=== PATIENT | female | born 1970 | race American Indian/Alaskan Native ===

== ENCOUNTER 2017-04-04 15:10 | Emergency (ER) | payer MEDICAID, OTHER ==
--- NOTE | 2017-04-04 15:35 | EDM.PDOC ---
ED HPI GENERAL MEDICAL PROBLEM - General Chief Complaint: Chest Pain Stated Complaint: CHEST PAINS Time Seen by Provider: 04/04/17 15:15 Source of Information: Reports: Patient History Limitations: Reports: No Limitations - History of Present Illness INITIAL COMMENTS - FREE TEXT/NARRATIVE: 46-year-old female who is been having chest pain for the past 3 days, worse with a deep breath and worse at night when laying down. She has had a migraine for 3 days and a mild productive cough but no fever or chills, no nausea or vomiting. No recent trauma. She takes no medicine, she does not smoke and does not consume alcohol. She has had "pneumonia" in the past and she says it feels like pneumonia. She presented to the clinic and was sent directly over the emergency room. Onset: Gradual (Over the past 3 days she's been having symptoms) Duration: Waxing/Waning Location: Reports: Chest Quality: Reports: Burning, Dull Severity: Mild Worsens with: Reports: Other (Deep breaths cause increased pain) Associated Symptoms: Reports: Cough (Coughing up "junk"), Headaches. Denies: Diaphoresis, Fever/Chills, Loss of Appetite, Nausea/Vomiting, Shortness of Breath Chest Pain Score (Numeric/FACES): 5 - Related Data Allergies Allergy/AdvReac Type Severity Reaction Status Date / Time aspirin Allergy Diarrhea Verified 04/04/17 15:23 clindamycin Allergy Diarrhea Verified 04/04/17 15:23 Penicillins Allergy Anaphylactic Verified 04/04/17 15:23 Shock procaine HCl [From Novocain] Allergy Swelling Verified 04/04/17 15:23 Home Meds: Home Meds Naproxen [Naprosyn] 500 mg PO BID PRN 11/06/14 [History] Social & Family History - Tobacco Use Smoking Status *Q: Current Every Day Smoker Years of Tobacco use: 20 Second Hand Smoke Exposure: No - Alcohol Use Days Per Week of Alcohol Use: 0 - Recreational Drug Use Recreational Drug Use: Yes Drug Use in Last 12 Months: Yes Recreational Drug Type: Reports: Marijuana/Hashish Recreational Drug Use Frequency: Daily ED ROS GENERAL - Review of Systems Review Of Systems: See Below Constitutional: Denies: Fever, Chills HEENT: Reports: No Symptoms Respiratory: Reports: Cough, Sputum. Denies: Shortness of Breath Cardiovascular: Reports: Chest Pain GI/Abdominal: Reports: Abdominal Pain (Epigastric burning, worse with lying down or deep breath) : Reports: No Symptoms Musculoskeletal: Reports: No Symptoms Skin: Reports: No Symptoms Neurological: Reports: Headache. Denies: Confusion, Dizziness Psychiatric: Reports: No Symptoms ED EXAM, GENERAL - Physical Exam Exam: See Below Exam Limited By: No Limitations General Appearance: Alert, No Apparent Distress Eye Exam: Bilateral Eye: EOMI, Normal Inspection (No jaundice) Head: Atraumatic, Normocephalic Neck: Normal Inspection Respiratory/Chest: No Respiratory Distress, Rales (A few scattered rales are heard in the right base otherwise normal) Cardiovascular: Regular Rate, Rhythm GI/Abdominal: Soft, Non-Tender Extremities: Normal Inspection. No: Pedal Edema Neurological: Alert, Oriented Psychiatric: Normal Affect, Normal Mood Skin Exam: Warm, Dry EKG INTERPRETATION Rhythm: NSR Course - Vital Signs Last Recorded V/S: Last Vital Signs Temp 99.0 F 04/04/17 16:49 Pulse 87 04/04/17 16:49 Resp 15 04/04/17 15:26 BP 116/75 04/04/17 16:49 Pulse Ox 98 04/04/17 16:49 - Orders/Labs/Meds Orders: Active Orders 24 hr Category Date Time Status EKG Documentation Completion [RC] ASDIRECTED Care 04/04/17 15:35 Active EKG 12 Lead [EK] Routine Ther 04/04/17 15:35 Ordered Labs: Laboratory Tests 04/04/17 04/04/17 04/04/17 Range/Units 15:40 15:40 15:40 WBC 8.7 (4.5-11.0) K/uL RBC 4.09 (3.30-5.50) M/uL Hgb 12.1 (12.0-15.0) g/dL Hct 36.2 (36.0-48.0) % MCV 89 (80-98) fL MCH 30 (27-31) pg MCHC 33 (32-36) % Plt Count 310 (150-400) K/uL Neut % (Auto) 71 H (36-66) % Lymph % (Auto) 18 L (24-44) % [place] % (Auto) 7 H (2-6) % Eos % (Auto) 3 (2-4) % Baso % (Auto) 1 (0-1) % D-Dimer, Quantitative < 100 (0.0-400.0) ng/mL Sodium 141 (140-148) mmol/L Potassium 3.6 (3.6-5.2) mmol/L Chloride 105 (100-108) mmol/L Carbon Dioxide 25 (21-32) mmol/L Anion Gap 11.3 (5.0-14.0) mmol/L BUN 11 (7-18) mg/dL Creatinine 0.7 (0.6-1.0) mg/dL Est Cr Clr Drug Dosing 98.69 mL/min Estimated GFR (MDRD) > 60 (>60) Glucose 119 H (74-106) mg/dL Calcium 7.8 L (8.5-10.1) mg/dL Total Bilirubin 0.2 (0.2-1.0) mg/dL AST 13 L (15-37) U/L ALT 17 (12-78) U/L Alkaline Phosphatase 56 (46-116) U/L Troponin I < 0.017 (0.000-0.056) ng/mL Total Protein 6.8 (6.4-8.2) g/dL Albumin 3.4 (3.4-5.0) g/dL Globulin 3.4 (2.3-3.5) g/dL Albumin/Globulin Ratio 1.0 L (1.2-2.2) Meds: Medications Discontinued Medications Generic Name Dose Route Start Last Admin Trade Name Freq PRN Reason Stop Dose Admin Ketorolac Tromethamine 60 mg 04/04/17 16:30 04/04/17 16:58 Toradol IM 04/04/17 16:31 60 mg ONETIME ONE Administration - Re-Assessments/Exams Free Text/Narrative Re-Assessment/Exam: 04/04/17 16:41 EKG was normal. CBC, CMP, troponin and d-dimer were obtained. All labs were normal as well. Two-view chest x-ray was normal. Her pain was very reproducible with a deep breath or with trying to sit up against resistance. A 60 mg Toradol dose IM was given which gave her some relief. She can continue on 10 mg every 6- 8 hours for the weekend, and recheck next week if not improving satisfactorily. Departure - Departure Time of Disposition: 17:04 Disposition: Home, Self-Care 01 Condition: Good Clinical Impression: Left-sided chest wall pain - Discharge Information Instructions: Chest Wall Pain, [id number] Referrals: PCP,None [Primary Care Provider] - Forms: ED Department Discharge Care Plan Goals: Take one pain pill every 6-8 hours for the next 3-5 days. Increase activity as tolerated and recheck next week if not improving satisfactorily. Return sooner if you feel you are worsening or develop other concerns. - My Orders Last 24 Hours: My Active Orders 04/04/17 15:35 EKG Documentation Completion [RC] ASDIRECTED EKG 12 Lead [EK] Routine - Assessment/Plan Last 24 Hours: My Active Orders 04/04/17 15:35 EKG Documentation Completion [RC] ASDIRECTED EKG 12 Lead [EK] Routine
--- NOTE | 2017-04-04 15:57 | CR ---
Chest 2V INDICATION: dyspnea COMPARISON: None FINDINGS: 3 views. Heart size normal. Lungs are clear. No infiltrate or pleural effusion. No signs of pulmonary edema. Old left rib fractures. IMPRESSION: Nothing acute. Hyperinflation.
[2017-04-04] MEDS ORDERED: Ketorolac 60 MG/2 ML SDV IM ONE (16:30)
[2017-04-04 16:50] VITALS: BP 116/75
== END 2017-04-04 17:05 | disposition home or self-care (01) ==
LOC: JP.ED 15:10
DX: R07.89 Other chest pain (principal); F17.200 Nicotine dependence, unspecified, uncomplicated; Z88.6 Allergy status to analgesic agent; Z88.0 Allergy status to penicillin; Z88.1 Allergy status to other antibiotic agents
CPT/HCPCS: 36415; 71020; 80053; 84484; 85025; 85379; 93005; 96372; 99285; J1885; 93010; 99284

== ENCOUNTER 2019-12-28 18:54 | Emergency (ER) | payer MEDICAID | END 2019-12-28 20:10 | disposition left against medical advice (07) | LOC: JP.ED 18:54 | DX: Z53.21 Procedure and treatment not carried out due to patient leaving prior to being seen by health care provider (principal) ==

== ENCOUNTER 2020-01-10 15:00 | Emergency (ER) | payer MEDICAID ==
--- NOTE | 2020-01-10 15:15 | EDM.PDOC ---
ED HPI GENERAL MEDICAL PROBLEM - General Chief Complaint: General Stated Complaint: GENERAL Time Seen by Provider: 01/10/20 15:12 Source of Information: Reports: Family History Limitations: Reports: No Limitations - History of Present Illness INITIAL COMMENTS - FREE TEXT/NARRATIVE: 49-year-old female with a history of chronic back problems and memory loss presents to the emergency department for evaluation of unresponsiveness. The episode occurred today when she was at home in her apartment with her boyfriend. He reported that she quit talking to him for 20 minutes and seemed confused however she did not verbalize any complaints. He brought her to the ED and her lack of responsiveness improved. The patient reports that she has dysuria. She denies back pain, nausea or vomiting. She denies chills or fever. She denies alcohol use. She denies street drug use. She is not on a regular medications. She reports a history of seizures however her boyfriend did not see any seizure- like activity. The patient is felt well and does not have a fever. Pelvic Pain Score (Numeric/FACES): 5 - Related Data Allergies Allergy/AdvReac Type Severity Reaction Status Date / Time aspirin Allergy Diarrhea Verified 01/10/20 15:35 clindamycin Allergy Diarrhea Verified 01/10/20 15:35 Penicillins Allergy Anaphylactic Verified 01/10/20 15:35 Shock procaine HCl [From Novocain] Allergy Swelling Verified 01/10/20 15:35 Home Meds: Home Meds NK [No Known Home Meds] 01/10/20 [History] Past Medical History - Past Health History Medical/Surgical History: Denies Medical/Surgical History ED ROS GENERAL - Review of Systems Review Of Systems: See Below Constitutional: Denies: Fever, Chills HEENT: Reports: No Symptoms Respiratory: Denies: Shortness of Breath, Cough Cardiovascular: Denies: Chest Pain GI/Abdominal: Reports: No Symptoms. Denies: Nausea, Vomiting : Reports: Dysuria. Denies: Flank Pain, Frequency Musculoskeletal: Reports: Neck Pain, Back Pain Skin: Reports: No Symptoms Neurological: Reports: Other (Unresponsiveness) Psychiatric: Reports: Anxiety, Confusion Hematologic/Lymphatic: Reports: No Symptoms ED EXAM, GENERAL - Physical Exam Exam: See Below Exam Limited By: No Limitations General Appearance: Alert, WD/WN, No Apparent Distress Eye Exam: Bilateral Eye: Other (PERRLA) Ears: Normal External Exam, Normal Canal Nose: Normal Inspection, Normal Mucosa Throat/Mouth: Normal Inspection, Normal Teeth, Normal Gums, Normal Oropharynx Head: Atraumatic. No: Facial Tenderness Neck: Normal Inspection, Supple Respiratory/Chest: No Respiratory Distress, Lungs Clear Cardiovascular: Normal Peripheral Pulses, Regular Rate, Rhythm GI/Abdominal: Normal Bowel Sounds, Soft, Non-Tender Extremities: Normal Inspection, Normal Range of Motion Neurological: Alert, Oriented, Normal Cognition, Normal Reflexes, No Motor/Sensory Deficits. No: Inattentive, Confused Psychiatric: Normal Affect, Normal Mood Skin Exam: Warm, Dry Course - Vital Signs Last Recorded V/S: Last Vital Signs Temp 36.8 C 01/10/20 15:34 Pulse 77 01/10/20 15:34 Resp 16 01/10/20 15:34 BP 143/93 H 01/10/20 15:34 Pulse Ox 99 01/10/20 15:34 - Orders/Labs/Meds Orders: Active Orders 24 hr Category Date Time Status EKG Documentation Completion [RC] ASDIRECTED Care 01/10/20 16:11 Active CULTURE URINE [RM] Stat Lab 01/10/20 16:24 Received CULTURE URINE [RM] Stat Lab 01/10/20 17:25 Ordered EKG 12 Lead [EK] Routine Ther 01/10/20 16:10 Ordered Labs: Laboratory Tests 01/10/20 01/10/20 01/10/20 Range/Units 15:16 15:17 16:08 WBC (4.5-11.0) K/uL RBC (3.30-5.50) M/uL Hgb (12.0-15.0) g/dL Hct (36.0-48.0) % MCV (80-98) fL MCH (27-31) pg MCHC (32-36) % Plt Count (150-400) K/uL Neut % (Auto) (36-66) % Lymph % (Auto) (24-44) % [place] % (Auto) (2-6) % Eos % (Auto) (2-4) % Baso % (Auto) (0-1) % Sodium (140-148) mmol/L Potassium (3.6-5.2) mmol/L Chloride (100-108) mmol/L Carbon Dioxide (21-32) mmol/L Anion Gap (5.0-14.0) mmol/L BUN (7-18) mg/dL Creatinine (0.6-1.0) mg/dL Est Cr Clr Drug Dosing mL/min Estimated GFR (MDRD) (>60) Glucose (74-106) mg/dL Lactic Acid (0.4-2.0) mmol/L Calcium (8.5-10.1) mg/dL C-Reactive Protein (0.0-0.3) mg/dL Urine Color Yellow (YELLOW) Urine Appearance Slightly cloudy A (CLEAR) Urine pH 8.0 (5.0-8.0) Ur Specific [place] 1.020 (1.008-1.030) Urine Protein Negative (NEGATIVE) mg/dL Urine Glucose (UA) Negative (NEGATIVE) mg/dL Urine Ketones Negative (NEGATIVE) mg/dL Urine Occult Blood Trace-lysed H (NEGATIVE) Urine Nitrite Positive H (NEGATIVE) Urine Bilirubin Negative (NEGATIVE) Urine Urobilinogen 0.2 (0.2-1.0) EU/dL Ur Leukocyte Esterase Moderate H (NEGATIVE) Urine RBC 0-5 (0-5) Urine WBC 5-10 H (0-5) Ur Epithelial Cells Few Amorphous Sediment Not seen Urine Bacteria Many Urine Mucus Not seen Urine HCG, Qual Negative Urine Opiates Screen Presumptive positive H (NEGATIVE) Ur Oxycodone Screen Negative (NEGATIVE) Urine Methadone Screen Negative (NEGATIVE) Ur Propoxyphene Screen Negative (NEGATIVE) Ur Barbiturates Screen Negative (NEGATIVE) Ur Tricyclics Screen Negative (NEGATIVE) Ur Phencyclidine Scrn Negative (NEGATIVE) Ur Amphetamine Screen Negative (NEGATIVE) U Methamphetamines Scrn Negative (NEGATIVE) Urine MDMA Screen Negative (NEGATIVE) U Benzodiazepines Scrn Negative (NEGATIVE) U Cocaine Metab Screen Negative (NEGATIVE) U Marijuana (THC) Screen Presumptive positive H (NEGATIVE) 01/10/20 01/10/20 01/10/20 Range/Units 16:25 16:25 16:25 WBC 6.4 (4.5-11.0) K/uL RBC 4.74 (3.30-5.50) M/uL Hgb 12.9 (12.0-15.0) g/dL Hct 39.8 (36.0-48.0) % MCV 84 (80-98) fL MCH 27 (27-31) pg MCHC 32 (32-36) % Plt Count 323 (150-400) K/uL Neut % (Auto) 74 H (36-66) % Lymph % (Auto) 17 L (24-44) % [place] % (Auto) 7 H (2-6) % Eos % (Auto) 2 (2-4) % Baso % (Auto) 1 (0-1) % Sodium 140 (140-148) mmol/L Potassium 3.9 (3.6-5.2) mmol/L Chloride 106 (100-108) mmol/L Carbon Dioxide 25 (21-32) mmol/L Anion Gap 8.7 (5.0-14.0) mmol/L BUN 11 (7-18) mg/dL Creatinine 0.8 (0.6-1.0) mg/dL Est Cr Clr Drug Dosing 86.21 mL/min Estimated GFR (MDRD) > 60 (>60) Glucose 92 (74-106) mg/dL Lactic Acid 1.2 (0.4-2.0) mmol/L Calcium 8.7 (8.5-10.1) mg/dL C-Reactive Protein 1.04 H (0.0-0.3) mg/dL Urine Color (YELLOW) Urine Appearance (CLEAR) Urine pH (5.0-8.0) Ur Specific [place] (1.008-1.030) Urine Protein (NEGATIVE) mg/dL Urine Glucose (UA) (NEGATIVE) mg/dL Urine Ketones (NEGATIVE) mg/dL Urine Occult Blood (NEGATIVE) Urine Nitrite (NEGATIVE) Urine Bilirubin (NEGATIVE) Urine Urobilinogen (0.2-1.0) EU/dL Ur Leukocyte Esterase (NEGATIVE) Urine RBC (0-5) Urine WBC (0-5) Ur Epithelial Cells Amorphous Sediment Urine Bacteria Urine Mucus Urine HCG, Qual Urine Opiates Screen (NEGATIVE) Ur Oxycodone Screen (NEGATIVE) Urine Methadone Screen (NEGATIVE) Ur Propoxyphene Screen (NEGATIVE) Ur Barbiturates Screen (NEGATIVE) Ur Tricyclics Screen (NEGATIVE) Ur Phencyclidine Scrn (NEGATIVE) Ur Amphetamine Screen (NEGATIVE) U Methamphetamines Scrn (NEGATIVE) Urine MDMA Screen (NEGATIVE) U Benzodiazepines Scrn (NEGATIVE) U Cocaine Metab Screen (NEGATIVE) U Marijuana (THC) Screen (NEGATIVE) Departure - Departure Time of Disposition: 17:05 Disposition: Eloped 07 Condition: Good Clinical Impression: Urinary tract infection, Prolonged QT interval - Discharge Information Referrals: PCP,None [Primary Care Provider] - Forms: ED Department Discharge Additional Instructions: This patient presented to the emergency department after a period of unresponsiveness. She complained of dysuria. Her urinalysis is positive with pyuria and bacteria. She has positive leukocyte Estrace. Urine culture is pending. She has a prolonged QT interval of 529 ms. The patient is not taking any home medications. Her urine was positive for opiates. Is also positive for THC. She admits to taking ibuprofen so the THC may be a cross-reactivity to the ibuprofen. The patient unfortunately eloped before I could discharge her. She can return to the ER as needed. Urine culture is pending. Sepsis Event Note (ED) - Focused Exam Vital Signs: Vital Signs Temp Pulse Resp BP Pulse Ox 01/10/20 15:34 36.8 C 77 16 143/93 H 99 01/10/20 15:22 36.8 C 77 16 143/93 H 99 - My Orders Last 24 Hours: My Active Orders 01/10/20 16:10 EKG 12 Lead [EK] Routine 01/10/20 16:11 EKG Documentation Completion [RC] ASDIRECTED 01/10/20 16:24 CULTURE URINE [RM] Stat 01/10/20 17:25 CULTURE URINE [RM] Stat - Assessment/Plan Last 24 Hours: My Active Orders 01/10/20 16:10 EKG 12 Lead [EK] Routine 01/10/20 16:11 EKG Documentation Completion [RC] ASDIRECTED 01/10/20 16:24 CULTURE URINE [RM] Stat 01/10/20 17:25 CULTURE URINE [RM] Stat
[2020-01-10 15:24] VITALS: BP 143/93; PULSE 77
== END 2020-01-10 17:05 | disposition left against medical advice (07) ==
LOC: JP.ED 15:00
DX: N39.0 Urinary tract infection, site not specified (principal); I45.81 Long QT syndrome; Z88.6 Allergy status to analgesic agent; Z88.1 Allergy status to other antibiotic agents; Z88.0 Allergy status to penicillin
CPT/HCPCS: 36415; 80048; 80305-QW; 81001; 81025; 83605; 85025; 86140; 87086; 87088; 87186; 93005; 93010; 99284; 99285-25

== ENCOUNTER 2025-03-21 07:47 | Emergency (ER) | payer MEDICAID ==
[2025-03-21] MEDS: Prochlorperazine 10 MG/2 ML SDV IM ONE (08:59)
[2025-03-21 09:18] VITALS: BP 165/103; PULSE 71
== END 2025-03-21 09:44 | disposition home or self-care (01) ==
LOC: JP.ED 07:47
DX: R11.10 Vomiting, unspecified (principal); Z88.0 Allergy status to penicillin; Z88.1 Allergy status to other antibiotic agents; Z88.8 Allergy status to other drugs, medicaments and biological substances
CPT/HCPCS: 96372; 99283; J0780

== ENCOUNTER 2025-04-07 02:13 | Emergency (ER) | payer MEDICAID ==
[2025-04-07] MEDS: Magnesium Sulfate 2 GM/50 mL 2 GM in Premix Bag 1 BAG IV ONE (03:13)
[2025-04-07 03:15] LABS: BASOPHILS ABSOLUTE AUTO 0.03 K/uL (0.00-0.10); BASOPHILS PERCENT AUTO 0.2 % (0.1-1.3); EOSINOPHILS ABSOLUTE AUTO 0.12 K/uL (0.00-0.40); EOSINOPHILS PERCENT AUTO 1.0 % (0.0-5.4); IMMATURE GRAN ABSOLUTE AUTO 0.05 K/uL (0.00-0.23); IMMATURE GRAN PERCENT AUTO 0.4 % (0.0-0.7); LYMPHOCYTES ABSOLUTE AUTO 0.98 K/uL (0.8-3.3); LYMPHOCYTES PERCENT AUTO 8.1 % (11.4-47.7); MONOCYTES ABSOLUTE AUTO 0.82 K/uL (0.20-0.90); MONOCYTES PERCENT AUTO 6.7 % (3.3-12.6); NEUTROPHILS ABSOLUTE AUTO 10.17 K/uL (1.0-7.6); NEUTROPHILS PERCENT AUTO 83.6 % (40.0-78.1); PLATELET COUNT,PLT 255 K/uL (130-375); RED BLOOD CELL COUNT 4.26 M/uL (3.77-5.24); WHITE BLOOD CELL COUNT,WBC 12.2 K/uL (3.2-11.0)
[2025-04-07] MEDS: methylPREDNISolone Sodium Succinate 125 MG/2 ML SDV IVPUSH ONE (03:15)
[2025-04-07 03:27] VITALS: PULSE 94
[2025-04-07 03:36] LABS: A/G RATIO 0.9 (1.2-2.2); ALANINE AMINOTRANSFERASE,ALT 19 U/L (12-78); ASPARTATE AMNIOTRANSFERASE,AST 20 U/L (15-37); BILIRUBIN TOTAL 0.4 mg/dL (0.2-1.0); BLOOD UREA NITROGEN,BUN 12 mg/dL (7-18); CARBON DIOXIDE,CO2 31 mmol/L (21-32); CHLORIDE,CL 100 mmol/L (100-108); CREATININE 0.9 mg/dL (0.6-1.0); EST CRCL DRUG DOSING (CG) 72.92 mL/min; ESTIMATED GFR 76 mL/min (>60); GLUCOSE RANDOM 142 mg/dL (74-106); POTASSIUM,K 3.3 mmol/L (3.6-5.2); PROTEIN TOTAL,TP 7.6 g/dL (6.4-8.2); SODIUM,NA 138 mmol/L (140-148)
[2025-04-07 04:03] LABS: APPEARANCE,URINE CLEAR (CLEAR); GLUCOSE,URINE NEGATIVE (NEGATIVE); OCCULT BLOOD,URINE MODERATE (NEGATIVE)
[2025-04-07 04:04] VITALS: BP 116/67
[2025-04-07 04:10] LABS: AMPHETAMINES SCREEN, URINE NEGATIVE (NEGATIVE); METHADONE SCREEN, URINE NEGATIVE (NEGATIVE); METHAMPHETAMINES SCREEN, URINE PRESUMPTIVE POSITIVE (NEGATIVE); OXYCODONE SCREEN,URINE NEGATIVE (NEGATIVE); PROPOXYPHENE SCREEN,URINE NEGATIVE (NEGATIVE)
[2025-04-07 04:11] LABS: THC SCREEN,URINE 50 NG/ML PRESUMPTIVE POSITIVE (NEGATIVE)
[2025-04-07 04:13] LABS: SQUAMOUS EPITHELIAL CELLS,UR FEW /HPF; UROTHELIAL CELLS,URINE NOT SEEN /HPF
== END 2025-04-07 05:00 | disposition home or self-care (01) ==
LOC: JP.ED 02:13
DX: J44.89 Other specified chronic obstructive pulmonary disease (principal); I10 Essential (primary) hypertension; F17.200 Nicotine dependence, unspecified, uncomplicated; Z79.51 Long term (current) use of inhaled steroids; Z88.0 Allergy status to penicillin; Z88.6 Allergy status to analgesic agent; Z88.1 Allergy status to other antibiotic agents
CPT/HCPCS: 36415; 71046; 80053; 80305; 81001; 83605; 85025; 94640; 96365; 96366; 96375; 99285; J2919; J3475; J7620; A9270-GY